=== PATIENT | female | born 1990 | race Caucasian/White ===

== ENCOUNTER 2016-10-25 17:05 | Emergency (ER) | payer OTHER ==
[~2016-10-25] VITALS: Ht 165.1 cm; Wt 59.0 kg
[2016-10-25 17:22] VITALS: BP 96/61
== END 2016-10-26 00:40 | disposition home or self-care (01) ==
LOC: ER 19:00
DX: Z48.02 Encounter for removal of sutures (principal); F12.10 Cannabis abuse, uncomplicated
CPT/HCPCS: 99281; Z7610

== ENCOUNTER 2018-10-18 00:37 | Emergency (ER) | payer OTHER ==
[~2018-10-18] VITALS: Ht 165.1 cm; Wt 61.0 kg
[2018-10-18] MEDS ORDERED: LORAZEPAM 2MG/ML CPJ IM ONE (01:30)
[2018-10-18] MEDS ORDERED: OLANZAPINE 10 MG/VIAL IM ONE (01:30)
[2018-10-18 01:48] LABS: OPIATES URINE SCREEN NEGATIVE (NEGATIVE)
[2018-10-18 01:49] LABS: *AMPHETAMINES SCREEN URINE NEGATIVE (NEGATIVE); *BARBITURATES SCREEN URINE NEGATIVE (NEGATIVE); *BENZODIAZEPINES SCREEN URINE NEGATIVE (NEGATIVE); *COCAINE SCREEN URINE NEGATIVE (NEGATIVE); CANNABINOID URINE SCREEN NEGATIVE (NEGATIVE); PHENCYCLIDINE URINE SCREEN NEGATIVE (NEGATIVE)
[2018-10-18 01:50] LABS: METHADONE URINE SCREEN NEGATIVE (NEGATIVE)
[2018-10-18 03:06] LABS: CHLORIDE 105 mEq/L (98-107)
[2018-10-18 03:08] LABS: BASOPHILS % 0.1 % (0.0-2.0); HCG SCREEN NEGATIVE; HEMATOCRIT. 39.4 % (36.0-48.0); HEMOGLOBIN. 13.5 g/dL (12.0-16.0); LYMPHOCYTES % 12.8 % (20.0-50.0); MEAN CORPUSCULAR HEMOGLOBIN 31.8 pg (28.0-32.0); MEAN CORPUSCULAR VOLUME 92.7 fL (81.0-99.0); MEAN PLATELET VOLUME 8.8 fl (7.4-10.4); MONOCYTES % 7.3 % (2.0-8.0); NEUTROPHILS % 79.8 % (40.0-76.0); PLATELET 214 x1000/uL (130-400); RED BLOOD CELL COUNT 4.25 mill/uL (4.2-5.4); RED CELL DISTRIBUTION WIDTH 13.4 % (11.6-14.6)
[2018-10-18 03:11] LABS: ETHANOL BLOOD < 10 mg/dL
[2018-10-18 07:52] LABS: CLARITY URINE CLEAR (CLEAR); COLOR URINE YELLOW (YELLOW); KETONES URINE 3+ (NEGATIVE); LEUKOCYTE ESTERASE URINE NEGATIVE (NEGATIVE); NITRITE URINE NEGATIVE (NEGATIVE); OCCULT BLOOD URINE NEGATIVE (NEGATIVE); PROTEIN URINE NEGATIVE (NEGATIVE); UROBILINOGEN URINE 0.2 E.U./dL (0.2-1.0)
[2018-10-18] MEDS ORDERED: ACETAMINOPHEN 325MG TABLET PO ONE (13:15)
[2018-10-20 12:29] VITALS: BP 110/75
== END 2018-10-20 12:28 | disposition home or self-care (01) ==
LOC: ER 02:56
DX: F29 Unspecified psychosis not due to a substance or known physiological condition (principal); F17.210 Nicotine dependence, cigarettes, uncomplicated
CPT/HCPCS: 36415; 70450; 80053; 80305; 80307; 80320; 80329; 81003; 81025; 82962; 84703; 85025; 96372; 99284; J2060; J3490; Z7610; G0480